=== PATIENT | male | born 1985 | race Caucasian/White ===

== ENCOUNTER 2018-12-26 13:49 | Emergency (ER) | payer OTHER, SELFPAY ==
[2018-12-26 13:51] VITALS: BP 135/93; PULSE 115; RESP 20; TEMP 37.6; O2SAT 97
[2018-12-26] MEDS: SODIUM CHLORIDE 0.9% 1,000 ML 1000 ML IV ×2 (14:21→16:06)
[2018-12-26 14:22] LABS: Add Manual Diff / Slide Review NO; Basophils Absolute Auto 0 /uL (0-100); Basophils Percent Auto 0.2 % (0-2); Eosinophils Absolute Auto 0 /uL (0-450); Eosinophils Percent Auto 0.8 % (2-4); Hematocrit 45.2 % (41-53); Hemoglobin 15.5 g/dL (13.5-17.5); Lymphocytes Absolute Auto 600 /uL (1100-4500); Lymphocytes Percent Auto 9.6 % (25-40); Mean Corpuscular HGB Conc 34.3 % (30-36); Mean Corpuscular Volume 90.3 fL (80-100); Monocytes Absolute Auto 800 /uL (0-900); Monocytes Percent Auto 12.7 % (3-14); Neutrophils Absolute Auto 4900 /uL (1500-7000); Neutrophils Percent Auto 76.7 % (50-75); Platelet Count 198 X10^3/uL (150-400); Red Blood Cell Count 5.01 X10^6/uL (4.5-5.9); White Blood Cell Count 6.4 X10^3/uL (4.5-11.0)
--- NOTE | 2018-12-26 14:23 | DI.RAD.S_ITS ---
PROCEDURE: XR CHEST 2V INDICATIONS: pain TECHNIQUE: 2 views of the chest were acquired. COMPARISON: None. FINDINGS: Surgical changes and devices: None. Lungs and pleura: Lungs are clear. No pleural effusions or pneumothorax. Mediastinum: Mediastinal contours are normal. Heart size is normal. Bones and chest wall: No suspicious bony abnormalities. Soft tissues appear unremarkable. IMPRESSION: No acute disease Dictated by: Alexy Beach M.D. on 12/26/2018 at 14:48 Approved by: Alexy Beach M.D. on 12/26/2018 at 14:50
[2018-12-26 14:24] VITALS: BP 136/88; PULSE 94; RESP 12; O2SAT 92
[2018-12-26 14:35] LABS: Alanine Aminotransferase 25 IU/L (21-72); Albumin 4.8 g/dL (3.5-5.0); Albumin Globulin Ratio 1.5 (1.0-2.8); Alkaline Phosphatase 47 U/L (38-126); Amylase 106 U/L (30-110); Aspartate Aminotransferase 18 IU/L (17-59); BUN Creatinine Ratio 16.7 (6-22); Bilirubin Total 0.6 mg/dL (0.2-1.3); Blood Urea Nitrogen 15 mg/dL (9-20); Calcium 9.6 mg/dL (8.4-10.2); Carbon Dioxide 23 mmol/L (22-32); Chloride 103 mmol/L (98-107); Estimated Glomerular Filt Rate > 60.0 mL/min (>60); Globulin 3.3 g/dL (1.7-4.1); Glucose 121 mg/dL (70-100); HEMOLYSIS < 15 (0-50); Lipase 71 U/L (23-300); Potassium 3.9 mmol/L (3.4-5.1); Sodium 139 mmol/L (137-145); Total Protein 8.1 g/dL (6.3-8.2)
--- NOTE | 2018-12-26 14:39 | DI.CT.S_ITS ---
PROCEDURE: CT ABDOMEN PELVIS W CON INDICATIONS: Abdominal pain TECHNIQUE: After the administration of oral and intravenous contrast, 5 mm thick sections acquired from the diaphragms to the symphysis. 5 mm thick coronal and sagittal reformats were performed. For radiation dose reduction, the following was used: automated exposure control, adjustment of mA and/or kV according to patient size. COMPARISON: None. FINDINGS: Image quality: Excellent. ABDOMEN: Lung bases: There is minimal dependent atelectasis. Heart size is normal. Solid organs: Liver demonstrates no focal hepatic lesions. Gallbladder appears within normal limits without calcified gallstones. Biliary system is non-dilated. Pancreas enhances normally. Spleen is normal in size and enhancement. No adrenal nodules. Kidneys are normal in size and enhancement, without hydronephrosis. Peritoneum and bowel: There is segmental wall thickening and enhancement of multiple small bowel loops predominantly involving the ileum within the mid and right paracentral abdomen. There are also associated prominent mesenteric vessels. Findings are consistent with a nonspecific enteritis. No associated bowel obstruction. The appendix is normal in appearance. The colon demonstrates normal caliber and wall thickness. There are a few colonic diverticula without acute diverticulitis. There is a small amount of free fluid in the abdomen. No free air. Nodes and vessels: No retroperitoneal or mesenteric adenopathy. Aorta and inferior vena cava are normal in caliber. Miscellaneous: No ventral hernias. PELVIS: Genitourinary: Bladder wall thickness is normal. Miscellaneous: No inguinal hernias or adenopathy. Bones: No suspicious bony lesions. No vertebral body compression fractures. IMPRESSION: 1. Segmental small bowel wall thickening and enhancement predominantly involving the ileum in the right mid and lower quadrants consistent with a nonspecific enteritis, likely infectious or inflammatory. No evidence of associated bowel obstruction. 2. No evidence of appendicitis. 3. Small amount of nonspecific free fluid is likely reactive. Dictated by: Vasiliy Hankins M.D. on 12/26/2018 at 15:04 Approved by: Vasiliy Hankins M.D. on 12/26/2018 at 15:14
--- NOTE | 2018-12-26 14:56 | ED_ITS ---
HPI - Abdominal Pain <CARROLL Kapoor - Last Filed: 12/26/18 18:19> General Chief Complaint: Abdominal Pain Stated Complaint: Abdominal pain since last night Time Seen by Provider: 12/26/18 14:03 Source: patient Mode of arrival: ambulatory Limitations: no limitations History of Present Illness HPI narrative: The patient is a 33-year-old male nonsmoker who denies any medical or surgical history who presents with a chief complaint of abdominal pain. He states it started last night. He was foam rolling his back, when his toddler crawled on top of his stomach. He then felt central abdominal pain. He states his been cramping, coming and going over night. He denies any fevers na usea vomiting or dysuria. He denies any hematuria. He states that the pain is center of his abdomen, does not radiate anywhere. He is concerned that his fit but has stated his heart rate is 100-115 since this happened. He states his normal heart rate is about 50. He denies any lightheadedness or dizziness. Related Data Allergies Allergy/AdvReac Type Severity Reaction Status Date / Time No Known Drug Allergies Allergy Verified 12/26/18 13:55 Review of Systems <DIANA Kapoor - Last Filed: 12/26/18 18:19> Review of Systems GENERAL: Denies chills, fatigue, malaise, fever, sweats. HEENT: Denies sinus pain, ear pain, sore throat, difficulty swallowing, dizziness. RESPIRATORY: Denies dyspnea, cough, wheezing, hemoptysis, sputum. CARDIOVASCULAR: Denies chest pain, palpitations, orthopnea, edema, GASTROINTESTINAL: See HPI : Denies dysuria, frequency, incontinence, hematuria, urinary retention. MUSCULOSKELETAL: denies weakness, joint pain, or bony pain SKIN: Denies rash, skin lesions, or other NEUROLOGIC: Denies weakness, headache, numbness, change in speech, confusion, seizures, incoordination. PSYCHIATRIC: No concerning psychosocial issues. 12 point review of systems is negative except for those stated above PFSH <CARROLL Kapoor - Last Filed: 12/26/18 18:19> Social History Smoking Status: Never smoker Social History Smoking Status: Never smoker Exam <DIANA Kapoor - Last Filed: 12/26/18 18:19> Narrative Exam Narrative: GENERAL: This is a well-nourished, well-developed patient, lying in no acute distress HEAD: Atraumatic. Normocephalic. No temporal or scalp tenderness. EYES: Pupils equal round and reactive. Extraocular motions intact. No scleral icterus. No injection or drainage. ENT: Nose without bleeding, purulent drainage or septal hematoma. Throat without erythema, tonsillar hypertrophy or exudate. Uvula midline. Airway patent. NECK: Trachea midline. No JVD or lymphadenopathy. Supple, nontender, no meningeal signs. CARDIOVASCULAR: Regular rate and rhythm without murmurs, gallops, or rubs. RESPIRATORY: Clear to auscultation. Breath sounds equal bilaterally. No wheezes, rales, or rhonchi. No cough. No increased respiratory effort. No accessory muscle use. GASTROINTESTINAL: Abdomen soft, nondistended. No hepato-splenomegaly, or palpable masses. No guarding. Generalized tenderness to periumbilical area. Soft to palpation. Negative Valladares sign. EXTREMITIES: No clubbing, cyanosis, or edema. No joint tenderness, effusion, or edema noted. BACK: Nontender without deformity or crepitance. No flank tenderness. NEURO: AOx3. SKIN: No rash or erythema. Initial Vital Signs Initial Vital Signs: Vital Signs Temperature 99.6 F 12/26/18 13:51 Pulse Rate 115 H 12/26/18 13:51 Respiratory Rate 20 12/26/18 13:51 Blood Pressure 135/93 H 12/26/18 13:51 Pulse Oximetry 97 12/26/18 13:51 <Prachi Chowdhury MD - Last Filed: 01/01/19 07:24> Initial Vital Signs Initial Vital Signs: Vital Signs Temperature 99.6 F 12/26/18 13:51 Pulse Rate 115 H 12/26/18 13:51 Respiratory Rate 20 12/26/18 13:51 Blood Pressure 135/93 H 12/26/18 13:51 Pulse Oximetry 97 12/26/18 13:51 Course <JOEL Kapoor-ASHLEY - Last Filed: 12/26/18 18:19> Orders Ordered: Discontinued Medications Sodium Chloride (Normal Saline 0.9%) 1,000 mls @ 1,000 mls/hr IV BOLUS ONE Stop: 12/26/18 15:00 Last Infusion: 12/26/18 15:22 Dose: 0 mls/hr Admin: 12/26/18 14:21 Dose: 1,000 mls/hr Sodium Chloride (Normal Saline 0.9%) 1,000 mls @ 1,000 mls/hr IV BOLUS ONE Stop: 12/26/18 17:04 Last Infusion: 12/26/18 17:39 Dose: 0 mls/hr Admin: 12/26/18 16:06 Dose: 1,000 mls/hr Ketorolac Tromethamine (Toradol) 30 mg IV NOW ONE Stop: 12/26/18 16:08 Last Admin: 12/26/18 16:08 Dose: 30 mg Ondansetron HCl (Zofran) 4 mg IV NOW ONE Stop: 12/26/18 16:07 Last Admin: 12/26/18 16:09 Dose: 4 mg Vital Signs - 8 hr 12/26/18 13:51 12/26/18 14:24 12/26/18 15:35 Temperature 99.6 F Pulse Rate 115 H 94 H 97 H Respiratory Rate 20 12 16 Blood Pressure 135/93 H Blood Pressure [Left Arm] 136/88 135/79 Pulse Oximetry 97 92 98 12/26/18 16:20 12/26/18 17:40 Temperature Pulse Rate 100 H 80 Respiratory Rate 14 14 Blood Pressure Blood Pressure [Left Arm] 134/80 135/72 Pulse Oximetry 98 98 <Prachi Chowdhury MD - Last Filed: 01/01/19 07:24> Orders Ordered: Discontinued Medications Sodium Chloride (Normal Saline 0.9%) 1,000 mls @ 1,000 mls/hr IV BOLUS ONE Stop: 12/26/18 15:00 Last Infusion: 12/26/18 15:22 Dose: 0 mls/hr Admin: 12/26/18 14:21 Dose: 1,000 mls/hr Sodium Chloride (Normal Saline 0.9%) 1,000 mls @ 1,000 mls/hr IV BOLUS ONE Stop: 12/26/18 17:04 Last Infusion: 12/26/18 17:39 Dose: 0 mls/hr Admin: 12/26/18 16:06 Dose: 1,000 mls/hr Ketorolac Tromethamine (Toradol) 30 mg IV NOW ONE Stop: 12/26/18 16:08 Last Admin: 12/26/18 16:08 Dose: 30 mg Ondansetron HCl (Zofran) 4 mg IV NOW ONE Stop: 12/26/18 16:07 Last Admin: 12/26/18 16:09 Dose: 4 mg Vital Signs - 8 hr 12/26/18 13:51 12/26/18 14:24 12/26/18 15:35 Temperature 99.6 F Pulse Rate 115 H 94 H 97 H Respiratory Rate 20 12 16 Blood Pressure 135/93 H Blood Pressure [Left Arm] 136/88 135/79 Pulse Oximetry 97 92 98 12/26/18 16:20 12/26/18 17:40 Temperature Pulse Rate 100 H 80 Respiratory Rate 14 14 Blood Pressure Blood Pressure [Left Arm] 134/80 135/72 Pulse Oximetry 98 98 MDM - Abdominal Pain <AURORA KapoorP- - Last Filed: 12/26/18 18:19> Lab Data Result diagrams: 12/26/18 14:15 12/26/18 14:15 Lab Results 12/26/18 12/26/18 12/26/18 Range/Units 14:15 14:15 14:15 WBC 6.4 (4.5-11.0) X10^3/uL RBC 5.01 (4.5-5.9) X10^6/uL Hgb 15.5 (13.5-17.5) g/dL Hct 45.2 (41-53) % MCV 90.3 (80-100) fL MCH 31.0 (26-34) PG MCHC 34.3 (30-36) % RDW 13.0 (11.6-14.8) % Plt Count 198 (150-400) X10^3/uL Neut % (Auto) 76.7 H (50-75) % Lymph % (Auto) 9.6 L (25-40) % [place] % (Auto) 12.7 (3-14) % Eos % (Auto) 0.8 L (2-4) % Baso % (Auto) 0.2 (0-2) % Neut # (Auto) 4900 (5786-6196) /uL Lymph # (Auto) 600 L (9416-8470) /uL [place] # (Auto) 800 (0-900) /uL Eos # (Auto) 0 (0-450) /uL Baso # (Auto) 0 (0-100) /uL Sodium 139 (137-145) mmol/L Potassium 3.9 (3.4-5.1) mmol/L Chloride 103 (98-107) mmol/L Carbon Dioxide 23 (22-32) mmol/L BUN 15 (9-20) mg/dL Creatinine 0.90 (0.66-1.25) mg/dL Estimated GFR > 60.0 (>60) mL/min BUN/Creatinine Ratio 16.7 (6-22) Glucose 121 H (70-100) mg/dL Calcium 9.6 (8.4-10.2) mg/dL Total Bilirubin 0.6 (0.2-1.3) mg/dL AST 18 (17-59) IU/L ALT 25 (21-72) IU/L Alkaline Phosphatase 47 (38-126) U/L Total Protein 8.1 (6.3-8.2) g/dL Albumin 4.8 (3.5-5.0) g/dL Globulin 3.3 (1.7-4.1) g/dL Albumin/Globulin Ratio 1.5 (1.0-2.8) Amylase 106 (30-110) U/L Lipase 71 (23-300) U/L Point of care testing: Urine Dip Bedside Urine Glucose Negative Bedside Urine Bilirubin - Negative Bedside Urine Ketone - Negative Urine Specific [place] 1.010 Bedside Urine Occult Blood - Negative Bedside Urine pH 6.0 Bedside Urine Protein - Negative Bedside Urine Urobilinogen - Negative Bedside Urine Nitrite - Negative Bedside Urine Leukocytes - Negative Esterase Imaging Data Chest x-ray: Radiologist's impression: [address] [address] XRay Report Signed Patient: Matthew Strauss EMR#: [id number] : 1985Acct:[id number] Age/Sex: 33 / MDate of Service: 12/26/18 Loc: ED Accession Number: [id number] Procedure: XR chest 2V Ordering Provider: Dottie Martinez- PROCEDURE: XR CHEST 2V INDICATIONS: pain TECHNIQUE: 2 views of the chest were acquired. COMPARISON: None. FINDINGS: Surgical changes and devices: None. Lungs and pleura: Lungs are clear. No pleural effusions or pneumothorax. Mediastinum: Mediastinal contours are normal. Heart size is normal. Bones and chest wall: No suspicious bony abnormalities. Soft tissues appear unremarkable. IMPRESSION: No acute disease Dictated by: Alexy Beach M.D. on 12/26/2018 at 14:48 Approved by: Alexy Beach M.D. on 12/26/2018 at 14:50 CT scan - abdomen: Radiologist's impression: Matthew Strauss 33 M [address] [address] [address] Scan Report Signed Patient: Matthew Strauss EMR#: [id number] : 1985Acct:[id number] Age/Sex: 33 / MDate of Service: 12/26/18 Loc: ED Accession Number: [id number] Procedure: CT abdomen pelvis w con Ordering Provider: Dottie Martinez CIRCULAR SAW OPERATOR- PROCEDURE: CT ABDOMEN PELVIS W CON INDICATIONS: Abdominal pain TECHNIQUE: After the administration of oral and intravenous contrast, 5 mm thick sections acquired from the diaphragms to the symphysis. 5 mm thick coronal and sagittal reformats were performed. For radiation dose reduction, the following was used: automated exposure control, adjustment of mA and/or kV according to patient size. COMPARISON: None. FINDINGS: Image quality: Excellent. ABDOMEN: Lung bases: There is minimal dependent atelectasis. Heart size is normal. Solid organs: Liver demonstrates no focal hepatic lesions. Gallbladder appears within normal limits without calcified gallstones. Biliary system is non-dilated. Pancreas enhances normally. Spleen is normal in size and enhancement. No adrenal nodules. Kidneys are normal in size and enhancement, without hydronephrosis. Peritoneum and bowel: There is segmental wall thickening and enhancement of multiple small bowel loops predominantly involving the ileum within the mid and right paracentral abdomen. There are also associated prominent mesenteric vessels. Findings are consistent with a nonspecific enteritis. No associated bowel obstruction. The appendix is normal in appearance. The colon demonstrates normal caliber and wall thickness. There are a few colonic diverticula without acute diverticulitis. There is a small amount of free fluid in the abdomen. No free air. Nodes and vessels: No retroperitoneal or mesenteric adenopathy. Aorta and inferior vena cava are normal in caliber. Miscellaneous: No ventral hernias. PELVIS: Genitourinary: Bladder wall thickness is normal. Miscellaneous: No inguinal hernias or adenopathy. Bones: No suspicious bony lesions. No vertebral body compression fractures. IMPRESSION: 1. Segmental small bowel wall thickening and enhancement predominantly involving the ileum in the right mid and lower quadrants consistent with a nonspecific enteritis, likely infectious or inflammatory. No evidence of associated bowel obstruction. 2. No evidence of appendicitis. 3. Small amount of nonspecific free fluid is likely reactive. Dictated by: Vasiliy Hankins M.D. on 12/26/2018 at 15:04 Approved by: Vasiliy Hankins M.D. on 12/26/2018 at 15:14 [facility] Narrative Medical decision making narrative: The patient is a 33-year-old male who presents with a complaints of abdominal pain and tachycardia. He had a normal chest x-ray. His CT was indicative of enteritis. His lab work was grossly normal and his urine was negative for any signs of infection or hematuria. IV medications. He eventually was okay with Toradol and Zofran. He felt much improved after the IV medications and 2 L of IV fluid. A disc was made with the CT results and x-ray results per his request. His heart rate responded very well to pain medications as well as fluids and decreased to normal range. I discussed at length follow up with primary care provider in the next day or 2. Discussed at length return precautions for chest pain shortness of breath fever with abdominal pain with blood in stool except her. Patient questions or concerns upon discharge. I did give him a prescription of Zofran. <Prachi Chowdhury MD - Last Filed: 01/01/19 07:24> Lab Data Lab Results 12/26/18 12/26/18 12/26/18 Range/Units 14:15 14:15 14:15 WBC 6.4 (4.5-11.0) X10^3/uL RBC 5.01 (4.5-5.9) X10^6/uL Hgb 15.5 (13.5-17.5) g/dL Hct 45.2 (41-53) % MCV 90.3 (80-100) fL MCH 31.0 (26-34) PG MCHC 34.3 (30-36) % RDW 13.0 (11.6-14.8) % Plt Count 198 (150-400) X10^3/uL Neut % (Auto) 76.7 H (50-75) % Lymph % (Auto) 9.6 L (25-40) % [place] % (Auto) 12.7 (3-14) % Eos % (Auto) 0.8 L (2-4) % Baso % (Auto) 0.2 (0-2) % Neut # (Auto) 4900 (5540-6507) /uL Lymph # (Auto) 600 L (9821-8635) /uL [place] # (Auto) 800 (0-900) /uL Eos # (Auto) 0 (0-450) /uL Baso # (Auto) 0 (0-100) /uL Sodium 139 (137-145) mmol/L Potassium 3.9 (3.4-5.1) mmol/L Chloride 103 (98-107) mmol/L Carbon Dioxide 23 (22-32) mmol/L BUN 15 (9-20) mg/dL Creatinine 0.90 (0.66-1.25) mg/dL Estimated GFR > 60.0 (>60) mL/min BUN/Creatinine Ratio 16.7 (6-22) Glucose 121 H (70-100) mg/dL Calcium 9.6 (8.4-10.2) mg/dL Total Bilirubin 0.6 (0.2-1.3) mg/dL AST 18 (17-59) IU/L ALT 25 (21-72) IU/L Alkaline Phosphatase 47 (38-126) U/L Total Protein 8.1 (6.3-8.2) g/dL Albumin 4.8 (3.5-5.0) g/dL Globulin 3.3 (1.7-4.1) g/dL Albumin/Globulin Ratio 1.5 (1.0-2.8) Amylase 106 (30-110) U/L Lipase 71 (23-300) U/L Point of care testing: Urine Dip Bedside Urine Glucose Negative Bedside Urine Bilirubin - Negative Bedside Urine Ketone - Negative Urine Specific [place] 1.010 Bedside Urine Occult Blood - Negative Bedside Urine pH 6.0 Bedside Urine Protein - Negative Bedside Urine Urobilinogen - Negative Bedside Urine Nitrite - Negative Bedside Urine Leukocytes - Negative Esterase Discharge Plan Departure Patient Disposition: Home Clinical Impression: Abdominal pain Qualifiers: Abdominal location: generalized Qualified Code(s): R10.84 - Generalized abdominal pain Discharge Date/Time: 12/26/18 17:42 Interventions: ED Discharge Assessment Last Done: 12/26/18 17:41 Instructions: DI for Abdominal Pain-Adult Activity Restrictions/Additional Instructions: Your CT came back with enteritis. Otherwise your lab work and chest x-ray were normal. Please push fluids and rest. I have given you a prescription of Zofran in case you decide he wanted to. This is for nausea. Please follow up with primary care provider in the next day or 2. Please come back to the emergency department for any acute concerns such as chest pain shortness of breath abdominal pain with fever or severe abdominal pain. To not take ibuprofen for 6-8 hours after your Toradol injection. Please come back to the emergency department for any acute concerns. Referrals: [employer] [facility] [Provider Group]
[2018-12-26 15:35] VITALS: BP 135/79; PULSE 97; RESP 16; O2SAT 98
[2018-12-26] MEDS: KETOROLAC 60 MG/2 ML VIAL 30 MG IV (16:08)
[2018-12-26] MEDS: ONDANSETRON 4 MG/2 ML INJ IV (16:09)
[2018-12-26 16:20] VITALS: BP 134/80; PULSE 100; RESP 14; O2SAT 98
[2018-12-26 17:40] VITALS: BP 135/72; PULSE 80; RESP 14; O2SAT 98
== END 2018-12-26 17:42 | disposition home or self-care (01) ==
PROVIDERS: Emergency Provider Nurse Practitioner Family
DX: R10.84 Generalized abdominal pain (principal); R00.0 Tachycardia, unspecified
CPT/HCPCS: 36591; 71046; 74177; 80053; 81003; 82150; 83690; 85025; 96361; 96374; 96375; 99284; J1885; J2405; Q9967